=== PATIENT | male | born 1955 | race Caucasian/White ===

== ENCOUNTER 2016-09-06 13:45 | Emergency (ER) | payer BC ==
[2016-09-06 14:24] VITALS: BP 151/73
--- NOTE | 2016-09-06 14:35 | UC ---
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 ---has had similar pain to the right medical foot pain that he has now--but it got better on its own..Now has continued pain and tenderness to touch with some swelling - History of Current Complaint Chief Complaint: UCLowerExtremity Stated Complaint: FOOT PAIN Time Seen by Provider: 09/06/16 14:34 Hx Obtained From: Patient Onset/Duration: Gradual Onset, Lasting Days, Still Present Severity Initially: Moderate Severity Currently: Moderate Pain Intensity: 5 Pain Scale Used: 0-10 Numeric Aggravating Factor(s): Standing, Ambulation Alleviating Factor(s): Nothing Able to Bear Weight: Yes - Allergies/Home Medications Allergies/Adverse Reactions: Allergies Allergy/AdvReac Type Severity Reaction Status Date / Time No Known Allergies Allergy Verified 09/06/16 14:24 Home Medications: Home Medications Aspirin [Aspirin 81 MG TAB] 09/06/16 [History] Metoprolol Succinate XL TAB* [Toprol XL TAB*] 09/06/16 [History] Pravastatin Sodium [Pravachol] 1 PO DAILY 09/06/16 [History] Ramipril CAP* [Altace CAP*] 09/06/16 [History] PMH/Surg Hx/FS Hx/Imm Hx Previously Healthy: No Endocrine History Of: Denies: Diabetes, Thyroid Disease Cardiovascular History Of: Reports: Cardiac Disorders - Stent, Hypertension Respiratory History Of: Reports: COPD Denies: Asthma GI/ History Of: Denies: Ulcer - Surgical History Surgical History: Yes Surgery Procedure, Year, and Place: Cardiac stent - Family History Family History: no reported cardio vascular issues - Social History Occupation: Employed Full-time Lives: With Family Alcohol Use: Daily Substance Use Type: None Smoking Status (MU): Heavy Every Day Tobacco Smoker Have You Smoked in the Last Year: Yes Cessation Counseling: Patient Advised to Stop Review of Systems Constitutional: Negative Skin: Negative Eyes: Negative ENT: Negative Respiratory: Negative Cardiovascular: Negative Gastrointestinal: Negative Genitourinary: Negative Motor: Negative Neurovascular: Negative Musculoskeletal: Negative - medicaal foot (near navicular tuberosity), Arthralgia Neurological: Negative Psychological: Negative All Other Systems Reviewed And Are Negative: Yes Physical Exam Triage Information Reviewed: Yes Appearance: Well-Appearing, No Pain Distress, Well-Nourished Vital Signs: Initial Vital Signs Temp 98.5 F 09/06/16 14:19 Pulse 79 09/06/16 14:19 Resp 16 09/06/16 14:19 BP 151/73 09/06/16 14:19 Pulse Ox 99 09/06/16 14:19 Vital Signs Reviewed: Yes Eye Exam: Normal Eyes: Positive: Conjunctiva Clear ENT Exam: Normal ENT: Positive: Normal ENT inspection, Hearing grossly normal. Negative: Trismus , Muffled/hoarse voice Neck exam: Normal Neck: Positive: Supple, Nontender Respiratory Exam: Normal Respiratory: Positive: Chest non-tender, No respiratory distress, No accessory muscle use Cardiovascular Exam: Normal Cardiovascular: Positive: RRR, Pulses Normal, Brisk Capillary Refill Musculoskeletal Exam: Normal Musculoskeletal: Positive: Strength Intact, ROM Intact, Edema @ - medial right midfoot Neurological Exam: Normal Neurological: Positive: Alert, Muscle Tone Normal Psychological Exam: Normal Skin Exam: Normal Diagnostics - Radiology No standard instances Xray Interpretation: Positive (See Comments) Radiology Interpretation Completed By: Radiologist - Arcuate Navicular vs old fracture Lower Extremity Course/Dx - Course Course Of Treatment: elevate rest, ice, post op shoe (refused IBurpfen ) follow with orthopedic - Differential Dx/Diagnosis Differential Diagnosis/HQI/PQRI: Cellulitis, DVT, Fracture (Closed), Sprain, Strain Provider Diagnoses: Acute on chronic foot pain Arcurate NAvicular Right foot Discharge - Discharge Plan Condition: Stable Disposition: HOME Patient Education Materials: Ibuprofen (By mouth), Arthralgia (ED), RICE Therapy (ED) Referrals: No Primary Care Phys,NOPCP [Primary Care Provider] - Jeniffer Serna MD [Medical Doctor] - 3 Days
--- NOTE | 2016-09-06 15:06 | RAD ---
INDICATION: Tarsal navicular pain right foot COMPARISON: None TECHNIQUE: AP, lateral, and oblique views were obtained. FINDINGS: There are no acute bony findings. There is an arcuate configuration of the tarsal navicular with an ossicle or remote fracture. The soft tissues are normal. IMPRESSION: SUSPECT ARCUATE NAVICULAR WITH ACCESSORY OSSICLE.
== END 2016-09-06 15:56 | disposition home or self-care (01) ==
LOC: UCEAST 13:45
DX: M79.671 Pain in right foot (principal); J44.9 Chronic obstructive pulmonary disease, unspecified; I10 Essential (primary) hypertension; Z95.5 Presence of coronary angioplasty implant and graft; F17.210 Nicotine dependence, cigarettes, uncomplicated
CPT/HCPCS: 99202; G0463

== ENCOUNTER 2017-06-04 11:53 | Emergency (ER) | payer BC ==
--- NOTE | 2017-06-04 14:07 | UC ---
General HPI - HPI Summary HPI Summary: 61 yo Wm c/o weakness and fatigue "not feeling like myself over the weekend" x 2 -3 days, noted this change and encouraged pt to come to . works here in , nurse [employer] and per his , pt has lost some weight over the last 2 weeks, and in light of recent [place] 4-5 years ago "just doesn't look right". 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 Negative: Agitation, Abdominal Pain, Chest Pain, Dizziness, Diarrhea, Dysuria, Hemoptysis, Nausea, Palpitations, Recent Medication Changes, Vomiting, Wheezing - Allergy/Home Medications Allergies/Adverse Reactions: Allergies Allergy/AdvReac Type Severity Reaction Status Date / Time No Known Allergies Allergy Verified 06/04/17 13:29 PMH/Surg Hx/FS Hx/Imm Hx - Surgical History Surgical History: Yes Surgery Procedure, Year, and Place: Cardiac stent - Family History Family History: no reported cardio vascular issues - Social History Alcohol Use: Daily Substance Use Type: None Smoking Status (MU): Heavy Every Day Tobacco Smoker Have You Smoked in the Last Year: Yes Review of Systems Constitutional: Chills, Fatigue Skin: Negative Eyes: Negative ENT: Negative Respiratory: Cough Cardiovascular: Negative Gastrointestinal: Negative Genitourinary: Negative Motor: Negative Neurovascular: Negative Musculoskeletal: Negative Neurological: Negative Psychological: Negative All Other Systems Reviewed And Are Negative: Yes Physical Exam Triage Information Reviewed: Yes Appearance: No Pain Distress Vital Signs: Initial Vital Signs Temp 36.7 C 06/04/17 13:26 Pulse 100 06/04/17 13:26 Resp 18 06/04/17 13:26 BP 125/78 06/04/17 13:26 Pulse Ox 98 06/04/17 13:26 Vital Signs Reviewed: Yes ENT Exam: Normal Neck exam: Normal Respiratory: Positive: Lungs clear. Negative: Crackles, Rhonchi, Stridor, Wheezing Cardiovascular Exam: Normal Abdominal Exam: Normal Abdomen Description: Positive: Nontender Musculoskeletal Exam: Normal Neurological Exam: Normal Psychological Exam: Normal Skin Exam: Normal Course/Dx - Course Course Of Treatment: CXR- reveals a 9cm mediastinal mass as discussed with radiology, discussed result with patient and nurse Soledad (). Advised PCP f/ u with oncology referral and staging including advanced imaging. - Differential Dx - Multi-Symptom Provider Diagnoses: New lung mass Discharge - Discharge Plan Condition: Stable Disposition: HOME Patient Education Materials: Weakness (ED), Fatigue (ED) Referrals: Sandeep Johns MD [Primary Care Provider] - Additional Instructions: tolerated, PLEASE FOLLOW UP WITH PCP FOR NEXT STEPS IN IDENTIFYING THE MASS IN YOUR LUNG, INCLUDING COOPERATION WITH AN ONCOLOGIST AND ADVANCED IMAGING AND STAGING IS NEEDED
--- NOTE | 2017-06-04 14:39 | RAD ---
INDICATION: Cough COMPARISON: None TECHNIQUE: PA and lateral dual-energy views were obtained. FINDINGS: Bones/Soft Tissues: There are no acute bony findings. Cardiomediastinal: The heart is normal in size. Lungs: There is a 9 cm mass in the right upper thorax with its epicenter in the medial upper lobe. The mass is not separable from the mediastinum. There are no other definitive masses. There is airspace disease right upper lobe which may represent a post obstructive pneumonitis although lymphangitic spread of tumor cannot be excluded Pleura: There are no pleural effusions. Other: None IMPRESSION: 9 CM RIGHT CHEST MASS. SUGGEST METASTATIC WORKUP FOR BRONCHOGENIC CARCINOMA. Findings called to Dr. Earl at urgent care.
[2017-06-04 15:18] VITALS: BP 130/69
== END 2017-06-04 15:28 | disposition home or self-care (01) ==
LOC: UCEAST 11:53
DX: R91.8 Other nonspecific abnormal finding of lung field (principal); Z72.0 Tobacco use
CPT/HCPCS: 71020; 81003; 87502; 93005; 99211; G0463

== ENCOUNTER 2017-06-13 12:20 | Day surgery (SDC) | payer BC ==
[~2017-06-13 12:20] MED LIST: Buffered Lidocaine 0.9% SYRIN* 5 ML/SYR SYRINGE INTRADERM ONE
[2017-06-13] MEDS ORDERED: Buffered Lidocaine 0.9% SYRIN* 5 ML/SYR SYRINGE ONE (12:53)
[2017-06-13] MEDS ORDERED: Midazolam* 1 MG/ML 2 ML VIAL (2 MG) ONE (13:54)
[2017-06-13] MEDS ORDERED: fentaNYL* 50 MCG/ML 2 ML VIAL (100 MCG VIAL) ONE (13:54)
[2017-06-13] MEDS ORDERED: Propofol* 10 MG/ML 20 ML BTL IV PUSH ONE (13:54)
[2017-06-13] MEDS ORDERED: Atracurium* 10 MG/ML 10 ML VIAL ONE (14:09)
[2017-06-13] MEDS ORDERED: fentaNYL* 50 MCG/ML 2 ML VIAL (100 MCG VIAL) IV PRN (14:27)
[2017-06-13] MEDS ORDERED: Ondansetron INJ* 2 MG/ML VIAL IV PRN (14:27)
[2017-06-13] MEDS ORDERED: Levalbuterol 1.25MG/0.5ML NEB INH PRN (14:27)
[2017-06-13] MEDS ORDERED: Glycopyrrolate IV* 0.2 MG/ML 1 ML VIAL ONE (14:52)
[2017-06-13] MEDS ORDERED: Neostigmine Methylsulfate* 2 MG/2 ML SYRINGE ONE (14:52)
[2017-06-13] MEDS ORDERED: Levalbuterol 1.25MG/0.5ML NEB ONE (15:05)
[2017-06-13 15:46] VITALS: BP 117/58
--- NOTE | 2017-06-14 05:01 | PRO ---
BRONCHOSCOPY REPORT: DATE OF PROCEDURE: 06/13/17 SURGEON: Saumya Araujo MD ANESTHESIOLOGIST: Dr. Negrete, refer to anesthesiologist's note for further details. ANESTHESIA: General anesthesia. PROCEDURE PERFORMED: Bronchoscopy with endobronchial ultrasound-guided fine needle aspiration of R4 lymph node and mediastinal mass. PROCEDURE IN DETAIL: Informed consent was obtained from the patient prior to the procedure after all the risks and benefits were thoroughly explained. Patient recently had chest x-ray and CT scan suggestive of large mediastinal mass conglomerate with possible dense lymphadenopathy. The patient was scheduled for EBUS for evaluation of malignancy. The patient was intubated with size 8.0 endotracheal tube prior to the procedure. Appropriate time-out was performed and agreed by attending staff. Flexible Ambu Scope was utilized for airway inspection. No endotracheal lesions were noted. Ambu Scope was then withdrawn. The patient had EBUS scope inserted through ET tube. Evidence of mild amounts of thin secretions were noted and were suctioned out. R4 lymph node was found to be enlarged, was accessed with 4 passes. Rapid on-site evaluation revealed malignant cells. Mediastinal conglomerate mass was accessed with 4 passes at level of Right main stem bronchus. Rapid on-site evaluation revealed malignant cells suggestive of possible squamous cell. Specimen was placed in CytoLyt. Bronchoscope was withdrawn. Ambu Scope was inserted, no significant bleeding noted. The patient was extubated and seen in Recovery in optimal condition. [id number]/CPS #: [id number] MTDD
== END 2017-06-13 15:57 | disposition home or self-care (01) ==
LOC: OR 12:20
PROVIDERS: ATTEND Internal Medicine
DX: C34.91 Malignant neoplasm of unspecified part of right bronchus or lung (principal); R59.0 Localized enlarged lymph nodes; F17.210 Nicotine dependence, cigarettes, uncomplicated; Z79.82 Long term (current) use of aspirin
CPT/HCPCS: 88172; 88173; 88177; 88305; 88341; 88342; 88360; A9270-GY; J2250; J2704; J3010

== ENCOUNTER 2017-09-28 07:10 | Emergency (ER) | payer BC ==
[2017-09-28 07:22] VITALS: BP 108/60
--- NOTE | 2017-09-28 08:04 | UC ---
Throat Pain/Nasal Tamir HPI - HPI Summary HPI Summary: PT HAS HAD HOARSE VOICE FOR SEVERAL DAYS. LAST NIGHT DEVELOPED FEVER 100.7 AND TODAY HAS SORE THROAT. HAD FIRST ROUND OF DOCETAXEL LAST Sunday09/19/17. 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 - Onset/Duration: Gradual Onset, Lasting Days, Still Present Severity: Moderate Pain Intensity: 2 Pain Scale Used: 0-10 Numeric Cough: None Associated Signs & Symptoms: Positive: Fever - Allergies/Home Medications Allergies/Adverse Reactions: Allergies Allergy/AdvReac Type Severity Reaction Status Date / Time No Known Allergies Allergy Verified 09/28/17 07:22 PMH/Surg Hx/FS Hx/Imm Hx Cardiovascular History: Cardiac Disease, Hypertension Respiratory History: COPD Cancer History: Lung Cancer - Surgical History Surgical History: Yes Surgery Procedure, Year, and Place: Cardiac stent - Family History Known Family History: Negative: Hypertension Family History: no reported cardio vascular issues - Social History Alcohol Use: Daily Alcohol Amount: 3-4 beers a day Substance Use Type: None Smoking Status (MU): Heavy Every Day Tobacco Smoker Amount Used/How Often: smoked for 36 years 1ppd Have You Smoked in the Last Year: Yes When Did the Patient Quit Smoking/Using Tobacco: trying to quit 06/2017 Review of Systems Constitutional: Fever ENT: Sore Throat Respiratory: Negative Cardiovascular: Negative Gastrointestinal: Negative All Other Systems Reviewed And Are Negative: Yes Physical Exam Triage Information Reviewed: Yes Appearance: Well-Appearing, No Pain Distress, Well-Nourished Vital Signs: Initial Vital Signs Temp 100.0 F 09/28/17 07:13 Pulse 89 09/28/17 07:13 Resp 18 09/28/17 07:13 BP 108/60 09/28/17 07:13 Pulse Ox 97 09/28/17 07:13 Vital Signs Reviewed: Yes Eyes: Positive: Conjunctiva Clear ENT: Positive: Hearing grossly normal, Pharyngeal erythema, TMs normal, Hoarse voice, Other - SOFT PALATE EDEMA ON RIGHT WITH SLIGHT DEVIATION OF UVULA TO LEFT. Negative: Tonsillar swelling, Tonsillar exudate Neck: Positive: Supple, Tenderness @ - RIGHT SPFL CERVICAL LAD, Enlarged Nodes @ - RIGHT SPFL CERVICAL LAD Respiratory Exam: Normal Cardiovascular Exam: Normal Abdomen Description: Positive: Soft Musculoskeletal: Positive: No Edema Neurological: Positive: Alert Psychological: Positive: Age Appropriate Behavior Skin: Negative: rashes Diagnostics - Laboratory Diagnostic Studies Completed/Ordered: STREP NEG Throat Pain/Nasal Course/Dx - Course Assessment/Plan: STREP NEG. SPOKE WITH PT'S ONCOLOGIST DR. DON. CONCERN FOR NEUTROPENIA IN SETTING OF RECENT CHEMO TREATMENT. SHE ADVISES HE GO DIRECTLY TO HER OFFICE FROM HERE FOR ASSESSMENT. - Differential Dx/Diagnosis Provider Diagnoses: FEVER/SORE THROAT - Physician Notification/Consults Discussed Patient Care With: Jacqueline Don Time Discussed With Above Provider: 07:45 Instructed by Provider To: Send To Office Now Discharge - Sign-Out/Discharge Documenting (check all that apply): Discharge - Discharge Plan Condition: Stable Disposition: HOME Patient Education Materials: Pharyngitis (ED), Fever in Adults (ED) Referrals: Sandeep Johns MD [Primary Care Provider] - If Needed Jacqueline Don MD [Medical Doctor] - (GO DIRECTLY TO DR. DON'S OFFICE FROM HERE) Additional Instructions: STREP NEGATIVE. GO DIRECTLY TO DR. DON'S OFFICE FROM HERE. SHE IS EXPECTING YOU. - Billing Disposition and Condition Condition: STABLE Disposition: HOME
== END 2017-09-28 08:02 | disposition home or self-care (01) ==
LOC: UCEAST 07:10
DX: R50.9 Fever, unspecified (principal); J02.9 Acute pharyngitis, unspecified; I51.9 Heart disease, unspecified; Z95.5 Presence of coronary angioplasty implant and graft; I10 Essential (primary) hypertension; J44.9 Chronic obstructive pulmonary disease, unspecified; F17.210 Nicotine dependence, cigarettes, uncomplicated
CPT/HCPCS: 87651; 99211; G0463

== ENCOUNTER 2017-09-28 12:18 | Inpatient (IN) | payer BC ==
[2017-09-28] MEDS ORDERED: Acetaminophen TAB* 325 MG PO PRN (13:06)
[2017-09-28] MEDS ORDERED: Ondansetron INJ* 2 MG/ML VIAL IV PRN (13:06)
[2017-09-28] MEDS ORDERED: Prochlorperazine TAB* 10 MG PO PRN (13:11)
[2017-09-28] MEDS ORDERED: Ondansetron ODT TAB* 4 MG PO PRN (13:11)
[2017-09-28] MEDS ORDERED: Nicotine Lozenge* 4 MG LOZENGE MT PRN (13:12)
[2017-09-28] MEDS ORDERED: LORazepam TAB(*) 0.5 MG PO PRN (13:12)
[2017-09-28] MEDS ORDERED: LORazepam TAB(*) 1 MG PO SCH (14:00)
[2017-09-28] MEDS: Enoxaparin(*) 40 MG/0.4 ML SYR SUBCUT SCH (16:19)
[2017-09-28] MEDS: NS 0.9% 1000 ML* 1,000 ML IV SCH (16:27)
[2017-09-28] MEDS: Cefepime 2 GM in Dextrose(*) 2 GM/50 ML BAG IV SCH (19:57)
[2017-09-29] MEDS: Cefepime 2 GM in Dextrose(*) 2 GM/50 ML BAG IV SCH ×3 (04:53→20:02)
[2017-09-29 06:12] LABS: Hematocrit 32 % (42-52); Mean Corpuscular HGB Conc 35 g/dl (31-36); Mean Corpuscular Hemoglobin 35 pg (27-31); Mean Corpuscular Volume 100 fL (80-94); Platelet Count 289 10^3/ul (150-450); Red Blood Count 3.16 10^6/ul (4.0-5.4); Red Cell Distribution Width 19 % (10.5-15); White Blood Count 3.3 10^3/ul (3.5-10.8)
[2017-09-29 06:22] LABS: ABS Basophils 0 10^3/ul (0-0.2); ABS Eosinophils 0 10^3/ul (0-0.6); ABS Lymphocytes 1.9 10^3/ul (1.0-4.8); ABS Monocytes 1.2 10^3/ul (0-0.8); ABS Neutrophils 0.1 10^3/ul (1.5-7.7); ABS Nucleated RBC 0 10^3/ul; EGFR Non-African American 192.2 (>60); Eosinophil % 0.1 % (0-6); Lymphocyte % 57.9 % (25-47); Nucleated Red Blood Cells % 0.1
[2017-09-29 06:55] LABS: Monocytes % 21 % (0-7)
[2017-09-29] MEDS: Thiamine TAB* 100 MG TAB PO SCH (08:23)
[2017-09-29] MEDS: CMCS: Pravastatin (NF) 20 MG TAB PO SCH (08:23)
[2017-09-29] MEDS: NS 0.9% 1000 ML* 1,000 ML IV SCH (08:23)
[2017-09-29] MEDS: Multivitamins/Minerals TAB PO SCH (08:23)
--- NOTE | 2017-09-29 08:23 | PN ---
Progress Note - Progress Note Date of Service: 09/29/17 SOAP: Subjective: feels ok this am. throat fairly sore. no nausea or vomiting. loose stools since docetaxel but not liquid. no abdominal pain. Objective: Vital Signs Temp Pulse Resp BP Pulse Ox 99.4 F 84 18 117/63 91 09/29/17 07:24 09/29/17 07:24 09/29/17 07:24 09/29/17 07:24 09/29/17 07:24 sitting up in nad perr eomi op-posterior quite red, no ulcerations or thrush CTA bl s1 s2 nl soft nt +bs no le edema A+O x 3, nonfocal neurological exam skin intact no signs of withdrawal Laboratory Results - last 24 hr 09/29/17 09/29/17 05:50 05:50 WBC 3.3 L RBC 3.16 L Hgb 11.0 L Hct 32 L MCV 100 H MCH 35 H MCHC 35 RDW 19 H Plt Count 289 MPV 7.0 L Neut % (Auto) 3.5 L Lymph % (Auto) 57.9 H Tucker % (Auto) 37.4 H Eos % (Auto) 0.1 Baso % (Auto) 1.1 Absolute Neuts (auto) 0.1 L* Absolute Lymphs (auto) 1.9 Absolute Monos (auto) 1.2 H Absolute Eos (auto) 0 Absolute Basos (auto) 0 Absolute Nucleated RBC 0 Immature Gran % 1 Neutrophils % 5 L Band Neutrophils % 1 Lymphocytes % 35 Reactive Lymphs % 38 H Monocytes % 21 H Eosinophils % 0 Basophils % 0 Nucleated RBC % 0.1 Abs Neuts (Manual) 0.2 L* Abs Lymphs (Manual) 1.2 Abs Monocytes (Manual) 0.7 Absolute Eos (Manual) 0 Abs Basophils (Manual) 0 Normal RBC Morphology Not Reportable Anisocytosis 1+ Macrocytosis 1+ Sodium 128 L Potassium 3.4 L Chloride 96 L Carbon Dioxide 27 Anion Gap 5 BUN 5 L Creatinine 0.45 L Est GFR ( Amer) 247.2 Est GFR (Non-Af Amer) 192.2 BUN/Creatinine Ratio 11.1 Glucose 107 H Calcium 8.8 Total Bilirubin 0.50 AST 27 ALT 12 Alkaline Phosphatase 55 Total Protein 6.1 L Albumin 3.1 L Globulin 3.0 Albumin/Globulin Ratio 1.0 Monoscreen Negative Acetaminophen (Tylenol Tab*) 650 mg PO Q4H PRN PRN Reason: FEVER/PAIN Aspirin (Aspirin 81 Mg Chew Tab*) 81 mg PO DAILY [facility] Enoxaparin Sodium (Lovenox(*)) 40 mg SUBCUT Q24H [facility] Last Admin: 09/28/17 16:19 Dose: 40 mg Folic Acid (Folvite Tab*) 1 mg PO DAILY [facility] Sodium Chloride (Ns 0.9% 1000 Ml*) 1,000 mls @ 75 mls/hr IV PER RATE [facility] Last Admin: 09/28/17 16:27 Dose: 75 mls/hr Cefepime HCl (Maxipime 2 Gm In Dextrose Duplex (*)) 2 gm in 50 mls @ 100 mls/ hr IV Q8H [facility] Last Admin: 09/29/17 04:53 Dose: 100 mls/hr Lorazepam (Ativan Tab(*)) 0.5 mg PO Q4H PRN PRN Reason: ANXIETY Lorazepam (Ativan Tab(*)) 0 - 6 mg PO .PER [facility] PROTOCOL [facility] PRN Reason: Protocol Metoprolol Tartrate (Lopressor Tab*) 25 mg PO DAILY [facility] Multi-Ingredient Mouthwash/Gargle (Magic M W2 Joselito/Maal/Nyst/Lido*) 5 ml SWISH SWAL QID [facility] Multivitamins/Minerals (Theragran/Minerals Tab*) 1 tab PO DAILY [facility] Nicotine Polacrilex (Nicotine Lozenge*) 4 mg MT Q2H PRN PRN Reason: CRAVINGS Ondansetron HCl (Zofran Inj*) 4 mg IV Q4H PRN PRN Reason: NAUSEA/VOMITING Ondansetron HCl (Zofran Odt Tab*) 4 mg PO Q6H PRN PRN Reason: NAUSEA Potassium Chloride (Klor Con Er Tab*) 20 meq PO BID [facility] Pravastatin Sodium (Pravachol (Nf)) 40 mg PO DAILY [facility] PRN Reason: Protocol Prochlorperazine (Compazine Tab*) 10 mg PO Q6H PRN PRN Reason: NAUSEA Thiamine HCl (Vitamin B-1 Tab*) 100 mg PO DAILY [facility] Assessment: 61 yo M w metastatic NSCLC on second line docetaxel admitted cycle 1 day 10 with neutropenic fevers, unclear source. Plan: -cont cefepime -suspect counts should recover over next 24-48 hours, can go home when ANC > 1000 and afebrile -cultures NTD -add magic mouthwash for likely mucositis -rapid strep test -replete K<4 and mag<2 (started PO kcl today) -lovenox dvt prophylaxis -WAM protocol for history of moderate to heavy ETOH use -full code
[2017-09-29] MEDS: Metoprolol Tartrate TAB* 25 MG PO SCH (08:24)
[2017-09-29] MEDS: Folic Acid TAB* 1 MG PO SCH (08:24)
[2017-09-29] MEDS ORDERED: Aspirin 81 mg CHEW TAB* 81 MG TAB.CHEW PO SCH (09:00)
[2017-09-29] MEDS: Potassium Chlor TAB* 20 MEQ TAB.ER PO SCH ×2 (09:37→21:27)
[2017-09-29] MEDS: Magic M W2 Ben/Maal/Nyst/Lido* 240 ML MOUTHWASH (alt formulation) SWISH SWAL SCH ×4 (09:37→21:26)
[2017-09-29] MEDS: Enoxaparin(*) 40 MG/0.4 ML SYR SUBCUT SCH (14:27)
[2017-09-30] MEDS: NS 0.9% 1000 ML* 1,000 ML IV SCH ×2 (00:07→14:44)
[2017-09-30] MEDS: Cefepime 2 GM in Dextrose(*) 2 GM/50 ML BAG IV SCH ×3 (04:04→19:47)
[2017-09-30 06:39] LABS: Hematocrit 31 % (42-52); Mean Corpuscular HGB Conc 35 g/dl (31-36); Mean Corpuscular Hemoglobin 35 pg (27-31); Mean Corpuscular Volume 100 fL (80-94); Mean Platelet Volume 7.2 um3 (7.4-10.4); Platelet Count 322 10^3/ul (150-450); Red Cell Distribution Width 18 % (10.5-15); White Blood Count 4.1 10^3/ul (3.5-10.8)
[2017-09-30 06:43] LABS: ABS Basophils 0.1 10^3/ul (0-0.2); ABS Eosinophils 0 10^3/ul (0-0.6); ABS Monocytes 1.6 10^3/ul (0-0.8); ABS Neutrophils 0.3 10^3/ul (1.5-7.7); ABS Nucleated RBC 0 10^3/ul; Eosinophil % 0.4 % (0-6); Lymphocyte % 50.3 % (25-47); Nucleated Red Blood Cells % 0.1
[2017-09-30 06:55] LABS: EGFR Non-African American 220.2 (>60)
[2017-09-30] MEDS: Potassium Chlor TAB* 20 MEQ TAB.ER PO SCH ×2 (07:54→16:48)
[2017-09-30] MEDS: Metoprolol Tartrate TAB* 25 MG PO SCH (07:54)
[2017-09-30] MEDS: Thiamine TAB* 100 MG TAB PO SCH (07:54)
[2017-09-30] MEDS: Multivitamins/Minerals TAB PO SCH (07:54)
[2017-09-30] MEDS: Folic Acid TAB* 1 MG PO SCH (07:54)
[2017-09-30] MEDS: Magic M W2 Ben/Maal/Nyst/Lido* 240 ML MOUTHWASH (alt formulation) SWISH SWAL SCH ×4 (07:56→21:32)
[2017-09-30] MEDS: CMCS: Pravastatin (NF) 20 MG TAB PO SCH (08:00)
[2017-09-30] MEDS: Enoxaparin(*) 40 MG/0.4 ML SYR SUBCUT SCH (14:44)
--- NOTE | 2017-09-30 16:06 | PN ---
Subjective Date of Service: 09/30/17 Interval History: HOSPITALIST PROGRESS NOTE Patient seen and examined at bedside. Case reviewed and d/w his nurse Khushbu Gruber. He feels well this AM. His major complaint is the hospital food. Denies sore throat, appetite has returned. Denies abdominal pain, N/V/D. Anxious for discharge. Family History: Unchanged from Admission Social History: Unchanged from Admission Past Medical History: Unchanged from Admission Objective Active Medications: Acetaminophen (Tylenol Tab*) 650 mg PO Q4H PRN PRN Reason: FEVER/PAIN Aspirin (Aspirin 81 Mg Chew Tab*) 81 mg PO DAILY [facility] Enoxaparin Sodium (Lovenox(*)) 40 mg SUBCUT Q24H [facility] Last Admin: 09/30/17 14:44 Dose: 40 mg Folic Acid (Folvite Tab*) 1 mg PO DAILY [facility] Last Admin: 09/30/17 07:54 Dose: 1 mg Sodium Chloride (Ns 0.9% 1000 Ml*) 1,000 mls @ 75 mls/hr IV PER RATE [facility] Last Admin: 09/30/17 14:44 Dose: 75 mls/hr Cefepime HCl (Maxipime 2 Gm In Dextrose Duplex (*)) 2 gm in 50 mls @ 100 mls/ hr IV Q8H [facility] Last Admin: 09/30/17 12:16 Dose: 100 mls/hr Lorazepam (Ativan Tab(*)) 0.5 mg PO Q4H PRN PRN Reason: ANXIETY Lorazepam (Ativan Tab(*)) 0 - 6 mg PO .PER [facility] PROTOCOL [facility] PRN Reason: Protocol Metoprolol Tartrate (Lopressor Tab*) 25 mg PO DAILY [facility] Last Admin: 09/30/17 07:54 Dose: 25 mg Multi-Ingredient Mouthwash/Gargle (Magic M W2 Joselito/Maal/Nyst/Lido*) 5 ml SWISH SWAL QID [facility] Last Admin: 09/30/17 12:16 Dose: 5 ml Multivitamins/Minerals (Theragran/Minerals Tab*) 1 tab PO DAILY [facility] Last Admin: 09/30/17 07:54 Dose: 1 tab Nicotine Polacrilex (Nicotine Lozenge*) 4 mg MT Q2H PRN PRN Reason: CRAVINGS Ondansetron HCl (Zofran Inj*) 4 mg IV Q4H PRN PRN Reason: NAUSEA/VOMITING Ondansetron HCl (Zofran Odt Tab*) 4 mg PO Q6H PRN PRN Reason: NAUSEA Potassium Chloride (Klor Con Er Tab*) 20 meq PO BID [facility] Last Admin: 09/30/17 07:54 Dose: 20 meq Pravastatin Sodium (Pravachol (Nf)) 40 mg PO DAILY [facility] PRN Reason: Protocol Last Admin: 09/30/17 08:00 Dose: 40 mg Prochlorperazine (Compazine Tab*) 10 mg PO Q6H PRN PRN Reason: NAUSEA Thiamine HCl (Vitamin B-1 Tab*) 100 mg PO DAILY [facility] Last Admin: 09/30/17 07:54 Dose: 100 mg Vital Signs - 8 hr 09/30/17 11:13 Temperature 98.0 F Pulse Rate 66 Respiratory 16 Rate Blood Pressure 109/63 (mmHg) O2 Sat by Pulse 94 Oximetry Oxygen Devices in Use Now: None Appearance: Elderly gentleman lying in bed in [facility]. Eyes: No Scleral Icterus Ears/Nose/Mouth/Throat: Mucous Membranes Moist Neck: Trachea Midline Respiratory: Symmetrical Chest Expansion and Respiratory Effort, Clear to Auscultation Cardiovascular: RRR - Normal S1 and S2 Neurological: Alert and Oriented x 3, NL Muscle Strength and Tone Result Diagrams: 09/30/17 06:05 09/30/17 06:05 Assess/Plan/Problems-Billing Assessment: Mr. White is a 61yo M with PMH of metastatic NSCLC on second line chemotherapy who presented with neutropenic fever. - Patient Problems (1) Neutropenic fever Comment: - Clinically improving, but ANC still 300. - Continue Cefepime. - D/c IVF as he appears to be euvolemic now and PO intake has improved. - Monitor ANC. (2) ETOH abuse Comment: - No signs of withdrawal at this time. - Continue WAM protocol. (3) Tobacco abuse Code(s): Z72.0 - TOBACCO USE Comment: - Continue nicotine supplementation. (4) Metastatic lung cancer (metastasis from lung to other site) Comment: - Management as per Oncology. (5) DVT prophylaxis Comment: - Lovenox. (6) Full code status Status and Disposition: Inpatient for management of neutropenic fever.
[2017-09-30] MEDS ORDERED: Magnesium Sulfate 2 GM IV* 2 GM/50 ML BAG IVPB ONE (16:15)
[2017-10-01] MEDS: Potassium Chlor TAB* 20 MEQ TAB.ER PO SCH ×2 (00:40→09:28)
[2017-10-01] MEDS: Cefepime 2 GM in Dextrose(*) 2 GM/50 ML BAG IV SCH (03:57)
[2017-10-01 07:04] LABS: Hematocrit 33 % (42-52); Mean Corpuscular HGB Conc 36 g/dl (31-36); Mean Corpuscular Hemoglobin 36 pg (27-31); Mean Corpuscular Volume 99 fL (80-94); Platelet Count 379 10^3/ul (150-450); Red Blood Count 3.36 10^6/ul (4.0-5.4); Red Cell Distribution Width 18 % (10.5-15)
[2017-10-01 07:21] LABS: EGFR Non-African American 192.2 (>60)
[2017-10-01 07:40] VITALS: BP 107/65
[2017-10-01 08:13] LABS: ABS Basophils 0.1 10^3/ul (0-0.2); ABS Eosinophils 0 10^3/ul (0-0.6); ABS Lymphocytes 2.2 10^3/ul (1.0-4.8); ABS Monocytes 1.7 10^3/ul (0-0.8); ABS Nucleated RBC 0 10^3/ul; Eosinophil % 0.3 % (0-6); Nucleated Red Blood Cells % 0.1
[2017-10-01] MEDS: Thiamine TAB* 100 MG TAB PO SCH (09:26)
[2017-10-01] MEDS: Folic Acid TAB* 1 MG PO SCH (09:27)
[2017-10-01] MEDS: Metoprolol Tartrate TAB* 25 MG PO SCH (09:27)
[2017-10-01] MEDS: Multivitamins/Minerals TAB PO SCH (09:28)
[2017-10-01] MEDS: CMCS: Pravastatin (NF) 20 MG TAB PO SCH (09:28)
[2017-10-01] MEDS: Magic M W2 Ben/Maal/Nyst/Lido* 240 ML MOUTHWASH (alt formulation) SWISH SWAL SCH (09:28)
--- NOTE | 2017-10-01 09:32 | DS ---
- Discharge Summary Admission Date: 09/28/17 Discharge Date: 10/01/17 Discharge Diagnosis: 1. Febrile Neutropenia: resolved 2. NSCLC: s/p C1 Docetaxel, f/u MD end of this week 3. ETOH abuse: no withdrawal symptoms at this time, enc.'d cessation 4. Tobacco abuse: cessation enc.'d Discharge Medications: Medication Instructions Recorded Confirmed Type Aspirin 81 mg CHEW TAB* 81 mg PO DAILY 09/28/17 09/28/17 History Folic Acid TAB* [Folvite TAB*] 1 mg PO DAILY 09/28/17 09/28/17 History Metoprolol Tartrate TAB* 25 mg PO DAILY 09/28/17 09/28/17 History [Lopressor TAB*] Ondansetron ODT TAB* [Zofran 4 MG 4 mg PO Q6H PRN 09/28/17 09/28/17 History Odt TAB*] Pravastatin (NF) [Pravachol (NF)] 40 mg PO DAILY 09/28/17 09/28/17 History Prochlorperazine TAB* [Compazine 10 mg PO Q6H PRN 09/28/17 09/28/17 History Tab*] Vitamin B Complex CAP* [B Complex 1 cap PO DAILY 09/28/17 09/28/17 History CAP*] Acetaminophen TAB* [Tylenol TAB*] 650 mg PO Q4H PRN tab 10/01/17 Rx Magic M W2 Joselito/Maal/Nyst/Lido* 5 ml SWISH SWAL QID #0 ml 10/01/17 Rx Multivitamins/Minerals TAB* 1 tab PO DAILY tab 10/01/17 Rx [Theragran/minerals TAB*] Nicotine Lozenge* 4 mg MT Q2H PRN lozenge 10/01/17 Rx Hospital Course: Please see admission note for full H&P, however briefly, Mr. White is well known to our service due to his unfortunate diagnosis of advanced NSCLC. He recently started second line therapy with Docetaxel, C1D1 09/19. He presented to the office on 09/28 with a fever and was found to be neutropenic. He was admitted for broad spectrum IV abx. There has been no growth on cultures and today he feels very well. He initially c/o a sore throat and this has resolved. His ANC has recovered to 1,000 and he has been afebrile since admission. He will be discharge home off abx with plan for f/u as scheduled 10/05.
[2017-10-03] MEDS ORDERED: Aspirin 81 mg CHEW TAB* 81 MG TAB.CHEW PO SCH (09:00)
== END 2017-10-01 10:30 | disposition home or self-care (01) | DRG 660 ==
LOC: MED 14:25
PROVIDERS: ADMIT Internal Medicine Hematology & Oncology; ATTEND Internal Medicine Hematology & Oncology
DX: D70.9 Neutropenia, unspecified (principal); C34.90 Malignant neoplasm of unspecified part of unspecified bronchus or lung; C79.9 Secondary malignant neoplasm of unspecified site; R50.81 Fever presenting with conditions classified elsewhere; F17.210 Nicotine dependence, cigarettes, uncomplicated; F10.10 Alcohol abuse, uncomplicated; I25.10 Atherosclerotic heart disease of native coronary artery without angina pectoris; E78.5 Hyperlipidemia, unspecified; I11.9 Hypertensive heart disease without heart failure; Z95.5 Presence of coronary angioplasty implant and graft; Z79.899 Other long term (current) drug therapy; Z79.82 Long term (current) use of aspirin; Z80.42 Family history of malignant neoplasm of prostate; Z80.1 Family history of malignant neoplasm of trachea, bronchus and lung; Z80.0 Family history of malignant neoplasm of digestive organs; Z80.6 Family history of leukemia
CPT/HCPCS: 36415; 71046; 80048; 80053; 81003; 83605; 83735; 85025; 85060; 86308; 87040; 87651; 96361; 96365; 99211; 99214; 99220; 99232; 99239; A9270-GY; G0463; J0692; J1650; J3475

== ENCOUNTER 2018-04-02 14:09 | Emergency (ER) | payer BC ==
[2018-04-02 14:50] VITALS: BP 116/70
--- NOTE | 2018-04-02 15:46 | RAD ---
Indication: Sharp anterior RIGHT lower rib pain with coughing for 3 days. History of RIGHT lung cancer, coronary artery disease and tobacco use. Comparison: November 12, 2017 CT. Technique: Dual energy PA chest and 4 view RIGHT unilateral rib series. Report: Tip of RIGHT chest port at level of RIGHT atrium. Significant progression of neoplastic disease with innumerable bilateral pulmonary metastasis in addition to the large RIGHT suprahilar upper lung zone mass. Negative for pleural effusion or pneumothorax. Negative for cardiomegaly. Unremarkable central pulmonary vasculature. No RIGHT rib fracture or suspicious focal osseous lesion evident. IMPRESSION: #. No RIGHT rib fracture or pneumothorax evident. #. Significant progression of neoplastic disease with innumerable bilateral pulmonary metastasis largely new compared with the prior exam in addition to the large RIGHT suprahilar upper lung zone mass.
--- NOTE | 2018-04-02 15:54 | UC ---
Respiratory Complaint HPI - HPI Summary HPI Summary: The patient is a 62-year-old male who presents here for evaluation of right lateral chest. He has a history of right sided lung cancer and has multiple metastases. He fell 4 days ago and landed on his right side. He got up and mowed his lawn with a push lawn more. He states he has severe right lateral chest pain when he coughs. He has a chronic cough and dyspnea due to his cancer. These have both worsened. He has had a low-grade temperature. - History of Current Complaint Chief Complaint: UCRespiratory Stated Complaint: CHEST CONGESTION Time Seen by Provider: 04/02/18 15:06 Hx Obtained From: Patient Hx From Patient Unobtainable Due To: Altered Mental Status Onset/Duration: Lasting Days Timing: Constant Severity Initially: Moderate Severity Currently: Moderate Pain Intensity: 2 Pain Scale Used: 0-10 Numeric Character: Cough: Nonproductive Aggravating Factors: Deep Breaths Associated Signs And Symptoms: Positive: Dyspnea, Fever, Pleuritic Chest Pain - Allergies/Home Medications Allergies/Adverse Reactions: Allergies Allergy/AdvReac Type Severity Reaction Status Date / Time No Known Allergies Allergy Verified 04/02/18 14:51 Home Medications: Home Medications ALPRAZolam TAB* [Xanax TAB*] 0.5 mg PO BEDTIME PRN 04/02/18 [History Confirmed 04/02/18] Morphine ORAL.CONC BULK BOT* [Roxanol ORAL.CONC Bottle*] 10 mg PO 04/02/18 [ History] PMH/Surg Hx/FS Hx/Imm Hx Previously Healthy: Yes Cardiovascular History: Cardiac Disease Cancer History: Lung Cancer - Surgical History Surgical History: Yes Surgery Procedure, Year, and Place: Cardiac stent - Family History Known Family History: Positive: Hypertension Family History: no reported cardio vascular issues - Social History Alcohol Use: Daily Alcohol Amount: 3-4 beers a day Substance Use Type: None Smoking Status (MU): Heavy Every Day Tobacco Smoker Amount Used/How Often: smoked for 36 years 1ppd Have You Smoked in the Last Year: Yes When Did the Patient Quit Smoking/Using Tobacco: trying to quit 06/2017 - Immunization History Most Recent Influenza Vaccination: fall 2016 Most Recent Pneumonia Vaccination: has had in past Review of Systems Constitutional: Fever, Chills Skin: Negative Eyes: Negative ENT: Negative Respiratory: Shortness Of Breath, Cough Cardiovascular: Chest Pain Gastrointestinal: Negative Genitourinary: Negative Motor: Negative Neurovascular: Negative Musculoskeletal: Negative Neurological: Negative Psychological: Negative All Other Systems Reviewed And Are Negative: Yes Physical Exam Triage Information Reviewed: Yes Appearance: Well-Appearing, No Pain Distress, Well-Nourished Vital Signs: Initial Vital Signs Temp 100.3 F 04/02/18 14:45 Pulse 101 04/02/18 14:45 Resp 18 04/02/18 14:45 BP 116/70 04/02/18 14:45 Pulse Ox 92 04/02/18 14:45 Vital Signs Reviewed: Yes Eyes: Positive: Conjunctiva Clear ENT: Positive: Hearing grossly normal, Pharynx normal. Negative: Nasal drainage , TMs normal, Trismus, Muffled voice, Hoarse voice Neck: Positive: Supple, Nontender, No Lymphadenopathy Respiratory: Positive: No accessory muscle use, Crackles. Negative: Normal breath sounds, No respiratory distress Cardiovascular: Positive: RRR, No Murmur Musculoskeletal: Positive: ROM Intact, No Edema Neurological: Positive: Alert Psychological Exam: Normal Skin Exam: Normal UC Diagnostic Evaluation - Laboratory O2 Sat by Pulse Oximetry: 92 - low - Radiology Xray Interpretation: Positive (See Comments) - #. No RIGHT rib fracture or pneumothorax evident. Radiology Interpretation Completed By: Radiologist Respiratory Course/Dx - Course Course Of Treatment: pt will follow up with oncologist. will breach subject of hospice care - Differential Dx/Diagnosis Provider Diagnoses: right rib contusions. bronchitis. metastatic lung cancer Discharge - Sign-Out/Discharge Documenting (check all that apply): Patient Departure All imaging exams completed and their final reports reviewed: Yes - Discharge Plan Condition: Stable Disposition: HOME Prescriptions: DOXYcycline CAP(*) [DOXYcycline 100MG CAP(*)] 100 mg PO BID #20 cap Patient Education Materials: Acute Bronchitis (ED) Referrals: Sandeep Johns MD [Primary Care Provider] - - Billing Disposition and Condition Condition: STABLE Disposition: Home
== END 2018-04-02 16:13 | disposition home or self-care (01) ==
LOC: UCEAST 14:09
DX: S20.211A Contusion of right front wall of thorax, initial encounter (principal); J40 Bronchitis, not specified as acute or chronic; C34.91 Malignant neoplasm of unspecified part of right bronchus or lung; F17.210 Nicotine dependence, cigarettes, uncomplicated; Z95.5 Presence of coronary angioplasty implant and graft; X58.XXXA Exposure to other specified factors, initial encounter; Y92.9 Unspecified place or not applicable
CPT/HCPCS: 99212; G0463